=== PATIENT | female | born 1950 | race Caucasian/White ===

== ENCOUNTER 2021-04-22 11:59 | Emergency (ER) | payer MEDICARE, BC ==
[~2021-04-22] VITALS: Ht 160 cm; Wt 54.9 kg
[2021-04-22] MEDS ORDERED: COZAAR50 MG PO (12:59)
[2021-04-22] MEDS ORDERED: METOPROLOL SUCC25 MG PO (13:00)
[2021-04-22] MEDS ORDERED: FOSAMAX PLUS D1 EACH PO (13:00)
== END 2021-04-22 14:08 | disposition home or self-care (01) ==
LOC: ED 11:59
DX: T63.461A Toxic effect of venom of wasps, accidental (unintentional), initial encounter (principal); M79.662 Pain in left lower leg
CPT/HCPCS: 93971; 99283-25